=== PATIENT | female | born 1980 | race Caucasian/White ===

== ENCOUNTER 2019-12-17 10:38 | Inpatient (IN) | payer BC, MEDICAID ==
[2019-12-17] MEDS ORDERED: ONDANSETRON HCL INJ/PF 4 MG/2 ML SDV IV ONE (11:17)
--- NOTE | 2019-12-17 11:20 | ER Document Report ---
ED Medical Screen (RME) - General Stated Complaint: URINARY PROBLEMS Time Seen by Provider: 12/17/19 11:10 Primary Care Provider: BENJAMÍN MIRANDA MD [Primary Care Provider] - Follow up as needed TRAVEL OUTSIDE OF THE [place] IN LAST 30 DAYS: No - HPI Notes: 12/17/19 11:18 39-year-old female presents to the emergency room for complaints of right lower quadrant stabbing pain that started yesterday along with malaise, fever chills, vomiting that started yesterday and is become progressive. Patient was seen in the urgent care setting yesterday and was treated with Macrobid for right lower quadrant and suprapubic abdominal pain and was diagnosed with a UTI, she is only taken 2 doses. After taking the Macrobid she started with her vomiting. Patient symptoms have become progressively worse. Patient still has her appendix and her gallbladder. Menstrual cycle was December 06, is not on any control. I have greeted and performed a rapid initial assessment of this patient. A comprehensive ED assessment and evaluation of the patient, analysis of test results and completion of the medical decision making process will be conducted by additional ED providers. PHYSICAL EXAMINATION: GENERAL: Well-appearing, well-nourished and in no acute distress. HEAD: Atraumatic, normocephalic. CV: Tachycardic LUNGS: No respiratory distress abd: Right lower quadrant abdominal tenderness on palpation. Right CVA tenderness on palpation Musculoskeletal: Normal range of motion NEUROLOGICAL: Normal speech, normal gait. SKIN: Warm, Dry, normal turgor, no rashes or lesions noted. - Related Data Allergies/Adverse Reactions: No Known Allergies Allergy (Verified 06/19/16 01:43 EDT) Physical Exam - Vital signs Vitals: Temp Pulse Resp BP Pulse Ox 99.5 F 112 H 16 119/64 99 12/17/19 10:44 12/17/19 10:44 12/17/19 10:44 12/17/19 10:44 12/17/19 10:44 Course - Vital Signs Vital signs: Temp Pulse Resp BP Pulse Ox 99.5 F 112 H 16 119/64 99 12/17/19 11:09 12/17/19 10:44 12/17/19 10:44 12/17/19 10:44 12/17/19 10:44 Doctor's Discharge - Discharge Referrals: BENJAMÍN MIRANDA MD [Primary Care Provider] - Follow up as needed
[2019-12-17] MEDS ORDERED: NORMAL SALINE 1000 ML 1,000 ML IV ONE ×3 (11:21→16:03)
[2019-12-17] MEDS ORDERED: MORPHINE SULFATE 10 MG/ML INJ IV ONE (12:03)
--- NOTE | 2019-12-17 12:27 | ER Document Report ---
ED General - General Chief Complaint: Abdominal Pain Stated Complaint: URINARY PROBLEMS Time Seen by Provider: 12/17/19 11:10 Primary Care Provider: BENJAMÍN MIRANDA MD [Primary Care Provider] - Follow up as needed Mode of Arrival: Ambulatory Information source: Patient TRAVEL OUTSIDE OF THE [place] IN LAST 30 DAYS: No - HPI Notes: Patient was referred from primary care clinic. Patient states she went to primary care clinic yesterday with some lower abdominal pain and pain with urination. She states at that time she was diagnosed with urinary tract infection. She states that she tried 1 dose of the antibiotic she was presc ribed which is Macrobid. After this she began to have fevers headaches chills. She also began to have increasing right lower quadrant abdominal pain. This pain is constant. It is moderate. It radiates to her back. It is worse with movement and better with rest. She has had no vaginal symptoms. She still does have some dysuria. She also has been having headaches. No known coronavirus exposures. - Related Data Allergies/Adverse Reactions: No Known Allergies Allergy (Verified 06/19/16 01:43 EDT) Past Medical History - General Information source: Patient - Social History Smoking Status: Never Smoker Frequency of alcohol use: None Drug Abuse: None Family History: Reviewed & Not Pertinent Patient has homicidal ideation: No Review of Systems - Review of Systems Constitutional: Chills, Fever Cardiovascular: denies: Chest pain, Palpitations Respiratory: denies: Cough, Short of breath -: Yes All other systems reviewed and negative Physical Exam - Vital signs Vitals: Temp Pulse Resp BP Pulse Ox 99.5 F 112 H 16 119/64 99 12/17/19 10:44 12/17/19 10:44 12/17/19 10:44 12/17/19 10:44 12/17/19 10:44 Interpretation: Tachycardic - General General appearance: Appears well, Alert - HEENT Head: Normocephalic, Atraumatic Eyes: Normal Pupils: PERRL - Respiratory Respiratory status: No respiratory distress Chest status: Nontender Breath sounds: Normal Chest palpation: Normal - Cardiovascular Rhythm: Regular Heart sounds: Normal auscultation Murmur: No - Abdominal Inspection: Normal Distension: No distension Bowel sounds: Normal Tenderness: Tender - Patient has right lower quadrant tenderness to palpation with some rebound. Organomegaly: No organomegaly - Back Back: Normal, Nontender - Extremities General upper extremity: Normal inspection, Nontender, Normal color, Normal ROM, Normal temperature General lower extremity: Normal inspection, Nontender, Normal color, Normal ROM, Normal temperature, Normal weight bearing. No: Marie's sign - Neurological Neuro grossly intact: Yes Cognition: Normal Orientation: AAOx4 [place] Coma Scale Eye Opening: Spontaneous [place] Coma Scale Verbal: Oriented [place] Coma Scale Motor: Obeys Commands [place] Coma Scale Total: 15 Speech: Normal Motor strength normal: LUE, RUE, LLE, RLE Sensory: Normal - Psychological Associated symptoms: Normal affect, Normal mood - Skin Skin Temperature: Warm Skin Moisture: Dry Skin Color: Normal Course - Re-evaluation Re-evalutation: 12/17/19 14:59 Patient presents with right-sided abdominal pain and a history of being diagnosed with urinary tract infection yesterday. She states that she is still having fevers and pain and is been unable to tolerate p.o.'s including the antibiotics. CT shows no evidence of appendicitis but she does have evidence of pyelonephritis. Her fever is still 104. Her white count is 16. She does have sepsis but not severe sepsis. Her lactate is normal. She will be admitted and treated with IV antibiotics and fluids. - Vital Signs Vital signs: Temp Pulse Resp BP Pulse Ox 99.5 F 112 H 16 119/64 99 12/17/19 11:09 12/17/19 10:44 12/17/19 10:44 12/17/19 10:44 12/17/19 10:44 - Laboratory Result Diagrams: 12/17/19 12:15 12/17/19 12:15 Laboratory results interpreted by me: 12/17/19 12/17/19 12/17/19 12:15 12:15 12:30 WBC 16.6 H Seg Neuts % (Manual) 93 H Lymphocytes % (Manual) 3 L Abs Neuts (Manual) 15.4 H Sodium 134.2 L Chloride 96 L BUN 6 L Glucose 128 H Total Bilirubin 1.7 H Direct Bilirubin 0.6 H Urine Protein 30 H Urine Ketones 20 H Urine Blood LARGE H Urine Urobilinogen 4.0 H Ur Leukocyte Esterase MODERATE H - Diagnostic Test Radiology reviewed: Image reviewed, Reports reviewed Discharge - Discharge Clinical Impression: Pyelonephritis Sepsis Qualifiers: Sepsis type: sepsis due to unspecified organism Sepsis acute organ dysfunction status: without acute organ dysfunction Qualified Code(s): A41.9 - Sepsis, unspecified organism Condition: Serious Disposition: ADMITTED INPATIENT Admitting Provider: Lucas (Hospitalist) - dank to admit Unit Admitted: Medical Floor Referrals: BENJAMÍN MIRANDA MD [Primary Care Provider] - Follow up as needed
[2019-12-17 12:47] LABS: HEMATOCRIT 39.2 % (36.0-47.0); MEAN CORPUSCULAR HGB CONC 35.7 g/dL (32.0-36.0); MEAN CORPUSCULAR VOLUME 90 fl (80-97); PLATELET COUNT 241 10^3/uL (150-450); RED BLOOD COUNT 4.37 10^6/uL (3.72-5.28); RED CELL DISTRIBUTION WIDTH 12.9 % (11.5-14.0); WHITE BLOOD COUNT 16.6 10^3/uL (4.0-10.5)
[2019-12-17 12:51] LABS: APPEARANCE,URINE CLEAR; BILIRUBIN,URINE NEGATIVE (NEGATIVE); COLOR,URINE AMBER; GLUCOSE, URINE NEGATIVE (NEGATIVE); KETONES,URINE 20 mg/dL (NEGATIVE); LEUKOCYTE ESTERASE,URINE MODERATE (NEGATIVE); NITRITE,URINE NEGATIVE (NEGATIVE); PROTEIN,URINE 30 mg/dL (NEGATIVE); URINE SPECIFIC GRAVITY 1.008
--- NOTE | 2019-12-17 12:58 | EKG REPORT ---
SEVERITY:- OTHERWISE NORMAL ECG - SINUS TACHYCARDIA : Confirmed by: Jeff Rosa MD 17-Dec-2019 12:57:56
[2019-12-17 13:01] LABS: ALBUMIN 4.6 g/dL (3.5-5.0); ALKALINE PHOSPHATASE 106 U/L (38-126); ANION GAP 12 (5-19); ASPARTATE AMINO TRANSFERASE 20 U/L (14-36); BILIRUBIN,DIRECT 0.6 mg/dL (0.0-0.4); BILIRUBIN,TOTAL 1.7 mg/dL (0.2-1.3); BLOOD UREA NITROGEN 6 mg/dL (7-20); CALCIUM 9.4 mg/dL (8.4-10.2); CARBON DIOXIDE 26 mmol/L (22-30); CHLORIDE 96 mmol/L (98-107); GLUCOSE 128 mg/dL (75-110); POTASSIUM 3.7 mmol/L (3.6-5.0); TOTAL PROTEIN 8.1 g/dL (6.3-8.2)
[2019-12-17 13:17] LABS: ABSOLUTE LYMPHOCYTES# (MANUAL) 0.5 10^3/uL (0.5-4.7); ABSOLUTE MONOCYTES # (MANUAL) 0.7 10^3/uL (0.1-1.4); BASOPHILS % (MANUAL) 0 % (0-2); EOSINOPHILS % (MANUAL) 0 % (0-6); LYMPHOCYTES % (MANUAL) 3 % (13-45); MONOCYTES % (MANUAL) 4 % (3-13); SEGMENTED NEUTROPHILS % (MAN) 93 % (42-78); TOTAL CELLS COUNTED 100
[2019-12-17 13:18] LABS: PLATELET COMMENT ADEQUATE; TOXIC GRANULATION 1+; TOXIC VACUOLATION PRESENT
--- NOTE | 2019-12-17 14:49 | RADIOLOGY REPORT (SQ) ---
EXAM DESCRIPTION: CT ABD/PELVIS WITH IV ONLY IMAGES COMPLETED DATE/TIME: 12/17/2019 2:04 pm REASON FOR STUDY: RLQ abd pain, fever, vomiting COMPARISON: None. TECHNIQUE: CT scan of the abdomen and pelvis performed using helical scanning technique with dynamic intravenous contrast injection. No oral contrast. Images reviewed with lung, soft tissue, and bone windows. Reconstructed coronal and sagittal MPR images reviewed. Delayed images for evaluation of the urinary system also acquired. All images stored on PACS. All CT scanners at this facility use dose modulation, iterative reconstruction, and/or weight based d osing when appropriate to reduce radiation dose to as low as reasonably achievable (ALARA). [facility]: Dose Right [facility]: CareDose [facility]: Dose Right [facility]: Teradose 4D [facility]: Strands CONTRAST TYPE AND DOSE: Contrast/concentration: Isovue 350.00 mg/ml; Total Contrast Delivered: 79.9 ml; Total Saline Delivered: 55.0 ml RENAL FUNCTION: Creatinine 0.57 milligrams/deciliter. RADIATION DOSE: CT Rad equipment meets quality standard of care and radiation dose reduction techniq ues were employed. CTDIvol: 5.4 - 7.2 mGy. DLP: 722 mGy-cm. LIMITATIONS: None. FINDINGS: LOWER CHEST: No acute findings. LIVER: The morphology of the liver is noncirrhotic. The portal veins are patent. There is no hepati c mass. SPLEEN: No splenomegaly or splenic mass. PANCREAS: No acute abnormality of the pancreas. GALLBLADDER: No abnormality that is apparent on CT. ADRENAL GLANDS: No mass or asymmetry. RIGHT KIDNEY AND URETER: Striated heterogeneous striated enhancement pattern of the kidney with bands of low attenuation that extend to the cortex. The renal pelvis is patulous and there is asymmetric enhancement of the urothelium. Evaluation for nephrolithiasis or ureterolithiasis is limited as excr eted intravenous contrast is present within the renal calices and pelvis. LEFT KIDNEY AND URETER: No solid mass, hydronephrosis or hydroureter. AORTA AND VESSELS: No aneurysm or dissection of the abdominal aorta. RETROPERITONEUM: No retroperitoneal adenopathy, hemorrhage or mass. BOWEL AND PERITONEAL CAVITY: No bowel obstruction, bowel wall thickening or pericolonic/ perienteric inflammation. No mesenteric adenopathy, free intraperitoneal fluid or mesenteric/ omental inflammati on. APPENDIX: Unable to identify the appendix. PELVIS: No abnormality of the uterus or adnexa that is apparent on CT. The wall of the urinary bladd er is thickened. ABDOMINAL WALL: No mass or adenopathy. BONES: No fracture or osseous lesion. OTHER: No other finding. IMPRESSION: Striated heterogeneous striated enhancement pattern of the right kidney with bands of lo w attenuation that extend to the cortex and asymmetric stranding of the perinephric fat. Clinical co rrelation to exclude a pyelonephritis is recommended. TECHNICAL DOCUMENTATION: JOB ID: [id number] Quality ID # [id number]: Final reports with documentation of one or more dose reduction techniques (e.g., Au tomated exposure control, adjustment of the mA and/or kV according to patient size, use of iterative reconstruction technique) 2010 [employer]- All Rights Reserved Reading location - IP/workstation name: [email or web address]
[2019-12-17] MEDS ORDERED: CEFTRIAXONE 1 GM/D5W RTU 1 GM/50 ML RTUPB IV ONE (14:54)
[2019-12-17] MEDS ORDERED: ACETAMINOPHEN 325 MG TABLET PO ONE (14:54)
--- NOTE | 2019-12-17 16:14 | PDOC H&P ---
History of Present Illness Admission Date/PCP: 12/17/19 15:09 BENJAMÍN MIRANDA MD Patient complains of: Dysuria, fever History of Present Illness: JACKSON JEROME is a 39 year old female with prior history of distant UTI during , presents to the hospital for evaluation of dysuria, fever, and nausea and vomiting. Her symptoms initially started with hematuria 5 days ago accompanied by right flank pain described as a burning sensation with minimal radiation aggravated by urination without any clear alleviating factors and no prior episode. Hematuria was gross characterized as blood-tinged urine. Patient took Azo [id number] without any improvement. However the hematuria and burning sensation began to improve by Monday. Yesterday patient went to see her primary care provider who prescribed nitrofurantoin. Also yesterday, she began to experience fever, chills, nausea and a few episodes of vomiting. Still dysuria became stronger. Mild polyuria. Past Medical History Cardiac Medical History: Reports: None Renal/ Medical History: Reports: Other - UTI Past Surgical History Past Surgical History: Reports: Tonsillectomy Social History Information Source: Patient Smoking Status: Never Smoker Frequency of Alcohol Use: None Hx Recreational Drug Use: No Hx Prescription Drug Abuse: No - Advance Directive Resuscitation Status: Full Code Family History Family History: Malignancy - Lung cancer in father, Other - Crohn's disease in mother Parental Family History Reviewed: Yes Children Family History Reviewed: NA Sibling(s) Family History Reviewed.: Yes Medication/Allergy Home Medications: Nitrofurantoin Monohyd/M-Cryst [Macrobid 100 mg Capsule] 100 mg PO Q12 12/17/19 Allergies/Adverse Reactions: No Known Allergies Allergy (Verified 06/19/16 01:43 EDT) Review of Systems Constitutional: PRESENT: chills, fever(s) Eyes: ABSENT: visual disturbances Nose, Mouth, and Throat: PRESENT: headache(s) Cardiovascular: ABSENT: chest pain Respiratory: ABSENT: cough, dyspnea Gastrointestinal: PRESENT: as per HPI, abdominal pain, nausea, vomiting. ABSENT: constipation, diarrhea Genitourinary: PRESENT: dysuria, hematuria. ABSENT: nocturia Musculoskeletal: ABSENT: back pain Integumentary: PRESENT: diaphoresis Neurological: PRESENT: dizziness - Lightheadedness when standing. ABSENT: confusion, convulsions Psychiatric: ABSENT: anxiety Endocrine: ABSENT: cold intolerance Allergic/Immunologic: PRESENT: other - Denies rhinorrhea or nasal congestion Physical Exam Vital Signs: Temp Pulse Resp BP Pulse Ox 102.8 F H 112 H 15 108/83 97 12/17/19 15:58 12/17/19 10:44 12/17/19 14:00 12/17/19 13:01 12/17/19 14:00 Intake & Output 12/16/19 12/17/19 12/18/19 06:59 06:59 06:59 Intake Total 2049 Balance 2049 Weight 70.2 kg General appearance: PRESENT: no acute distress, cooperative Head exam: PRESENT: normocephalic Mouth exam: PRESENT: neck supple Respiratory exam: PRESENT: clear to auscultation bj, unlabored. ABSENT: tachypnea, wheezes Cardiovascular exam: PRESENT: +S1, +S2, tachycardia. ABSENT: irregular rhythm GI/Abdominal exam: PRESENT: normal bowel sounds, soft, tenderness - Right lower quadrant tenderness and right flank. ABSENT: distended, firm, guarding, rebound, rigid Extremities exam: ABSENT: pedal edema, +1 edema, +2 edema Neurological exam: PRESENT: alert, awake, oriented to person, oriented to place, oriented to time Psychiatric exam: ABSENT: agitated, anxious Focused psych exam: ABSENT: pressured speech Results Laboratory Results: 12/17/19 12:15 12/17/19 12:15 12/17/19 12/17/19 12/17/19 12:15 12:15 12:15 WBC 16.6 H RBC 4.37 Hgb 14.0 Hct 39.2 MCV 90 MCH 32.0 MCHC 35.7 RDW 12.9 Plt Count 241 Seg Neutrophils % Not Reportable Sodium 134.2 L Potassium 3.7 Chloride 96 L Carbon Dioxide 26 Anion Gap 12 BUN 6 L Creatinine 0.57 Est GFR ( Amer) > 60 Glucose 128 H Lactic Acid 1.1 Calcium 9.4 Total Bilirubin 1.7 H AST 20 Alkaline Phosphatase 106 Total Protein 8.1 Albumin 4.6 Urine Color Urine Appearance Urine pH Ur Specific [place] Urine Protein Urine Glucose (UA) Urine Ketones Urine Blood Urine Nitrite Ur Leukocyte Esterase Urine WBC (Auto) Urine RBC (Auto) 12/17/19 12:30 WBC RBC Hgb Hct MCV MCH MCHC RDW Plt Count Seg Neutrophils % Sodium Potassium Chloride Carbon Dioxide Anion Gap BUN Creatinine Est GFR ( Amer) Glucose Lactic Acid Calcium Total Bilirubin AST Alkaline Phosphatase Total Protein Albumin Urine Color DWIGHT Urine Appearance CLEAR Urine pH 6.0 Ur Specific [place] 1.008 Urine Protein 30 H Urine Glucose (UA) NEGATIVE Urine Ketones 20 H Urine Blood LARGE H Urine Nitrite NEGATIVE Ur Leukocyte Esterase MODERATE H Urine WBC (Auto) 18 Urine RBC (Auto) 23 Impressions: Abdomen/Pelvis CT 12/17/19 11:17 IMPRESSION: Striated heterogeneous striated enhancement pattern of the right kidney with bands of low attenuation that extend to the cortex and asymmetric stranding of the perinephric fat. Clinical correlation to exclude a pyelonephritis is recommended. Assessment and Plan - Diagnosis (1) Acute pyelonephritis Is this a current diagnosis for this admission?: Yes Plan: Visualized on CT image in combination with positive urinalysis and systemic symptoms. Likely etiology of patient's fever. Check urine culture. Blood cultures are pending. Start on ciprofloxacin Tylenol and Toradol as needed for high fevers. We will also give ice packs if needed. (2) Sepsis Qualifiers: Sepsis type: sepsis due to unspecified organism Sepsis acute organ dysfunction status: without acute organ dysfunction Qualified Code(s): A41.9 - Sepsis, unspecified organism Is this a current diagnosis for this admission?: Yes Plan: Evidenced by UTI with tachycardia, leukocytosis, high fevers, hyperbilirubinemia. Lactic within normal limits. S/p 2L NS in ER. Will give another normal saline bolus and run on continuous fluids. - Time Time Spent with patient: 25-34 minutes
[2019-12-17] MEDS: NORMAL SALINE 1000 ML 1,000 ML IV PRN (16:17)
[2019-12-17] MEDS: CIPROFLOXACIN 400 MG/D5W RTU 400 MG/200 ML RTUPB IV SCH (17:21)
[2019-12-17] MEDS: KETOROLAC TROMETHAMINE INJ/PF 30 MG/1 ML SDV IV PRN (19:38)
[2019-12-17] MEDS: ONDANSETRON 4 MG TAB.RAPDIS PO PRN (19:39)
[2019-12-18] MEDS: ACETAMINOPHEN 325 MG TABLET PO PRN ×3 (01:54→19:48)
[2019-12-18] MEDS: CIPROFLOXACIN 400 MG/D5W RTU 400 MG/200 ML RTUPB IV SCH ×2 (05:48→17:04)
[2019-12-18 06:03] LABS: ABSOLUTE LYMPHOCYTES (AUTO) 0.8 10^3/uL (0.5-4.7); ABSOLUTE MONOCYTES (AUTO) 1.4 10^3/uL (0.1-1.4); ABSOLUTE NEUT (AUTO) 11.1 10^3/uL (1.7-8.2); BASOPHILS % (AUTO) 0.2 % (0-2); EOSINOPHILS % (AUTO) 0.1 % (0-6); HEMATOCRIT 28.7 % (36.0-47.0); MEAN CORPUSCULAR HEMOGLOBIN 31.6 pg (27.0-33.4); MEAN CORPUSCULAR HGB CONC 35.5 g/dL (32.0-36.0); MEAN CORPUSCULAR VOLUME 89 fl (80-97); MONOCYTES % (AUTO) 10.2 % (3-13); PLATELET COUNT 157 10^3/uL (150-450); RED BLOOD COUNT 3.23 10^6/uL (3.72-5.28); SEGMENTED NEUTROPHILS % (AUTO) 83.5 % (42-78); TOTAL CELLS COUNTED % (AUTO) 100 %; WHITE BLOOD COUNT 13.3 10^3/uL (4.0-10.5)
[2019-12-18 06:07] LABS: HEMOGLOBIN 10.2 g/dL (12.0-15.5)
[2019-12-18 06:16] LABS: ALBUMIN 2.7 g/dL (3.5-5.0); ALKALINE PHOSPHATASE 65 U/L (38-126); ANION GAP 8 (5-19); ASPARTATE AMINO TRANSFERASE 15 U/L (14-36); BILIRUBIN,DIRECT 0.3 mg/dL (0.0-0.4); BILIRUBIN,TOTAL 0.8 mg/dL (0.2-1.3); BLOOD UREA NITROGEN 7 mg/dL (7-20); CALCIUM 7.4 mg/dL (8.4-10.2); CARBON DIOXIDE 22 mmol/L (22-30); CHLORIDE 104 mmol/L (98-107); GLUCOSE 103 mg/dL (75-110); POTASSIUM 3.5 mmol/L (3.6-5.0); TOTAL PROTEIN 5.4 g/dL (6.3-8.2)
[2019-12-18] MEDS ORDERED: POTASSIUM CHLORIDE 10 MEQ TABLET.ER PO ONE (07:26)
--- NOTE | 2019-12-18 09:48 | PDOC PROGRESS REPORT ---
Subjective Progress Note for:: 12/18/19 Subjective:: Patient still having some burning urine this morning. Admits to diaphoresis but not febrile. Nausea has resolved but still has poor appetite. Reason For Visit: PYELONEPHRITIS Physical Exam Vital Signs: Temp Pulse Resp BP Pulse Ox 99.0 F 87 16 107/54 L 99 12/17/19 23:24 12/18/19 07:00 12/17/19 23:24 12/17/19 23:24 12/17/19 23:24 Intake & Output 12/17/19 12/18/19 12/19/19 06:59 06:59 06:59 Intake Total 4810 Balance 4810 Weight 70.1 kg General appearance: PRESENT: no acute distress, cooperative Head exam: PRESENT: normocephalic Mouth exam: PRESENT: neck supple Neck exam: ABSENT: JVD Respiratory exam: PRESENT: symmetrical, unlabored. ABSENT: accessory muscle use, retraction, tachypnea GI/Abdominal exam: PRESENT: soft, tenderness - Right lower quadrant and right flank. ABSENT: distended, firm, guarding, rebound, rigid Neurological exam: PRESENT: alert, awake, oriented to person, oriented to place, oriented to time Psychiatric exam: ABSENT: agitated, anxious Focused psych exam: ABSENT: pressured speech Skin exam: ABSENT: jaundice Results Laboratory Results: 12/18/19 05:05 12/18/19 05:05 12/17/19 12/17/19 12/17/19 12:15 12:15 12:15 WBC 16.6 H RBC 4.37 Hgb 14.0 Hct 39.2 MCV 90 MCH 32.0 MCHC 35.7 RDW 12.9 Plt Count 241 Seg Neutrophils % Not Reportable Sodium 134.2 L Potassium 3.7 Chloride 96 L Carbon Dioxide 26 Anion Gap 12 BUN 6 L Creatinine 0.57 Est GFR ( Amer) > 60 Glucose 128 H Lactic Acid 1.1 Calcium 9.4 Magnesium Total Bilirubin 1.7 H AST 20 Alkaline Phosphatase 106 Total Protein 8.1 Albumin 4.6 Urine Color Urine Appearance Urine pH Ur Specific [place] Urine Protein Urine Glucose (UA) Urine Ketones Urine Blood Urine Nitrite Ur Leukocyte Esterase Urine WBC (Auto) Urine RBC (Auto) 12/17/19 12/18/19 12/18/19 12:30 05:05 05:05 WBC 13.3 H RBC 3.23 L Hgb 10.2 L D Hct 28.7 L MCV 89 MCH 31.6 MCHC 35.5 RDW 13.0 Plt Count 157 Seg Neutrophils % 83.5 H Sodium 134.3 L Potassium 3.5 L Chloride 104 Carbon Dioxide 22 Anion Gap 8 BUN 7 Creatinine 0.50 L Est GFR ( Amer) > 60 Glucose 103 Lactic Acid Calcium 7.4 L Magnesium 1.7 Total Bilirubin 0.8 AST 15 Alkaline Phosphatase 65 Total Protein 5.4 L Albumin 2.7 L Urine Color DWIGHT Urine Appearance CLEAR Urine pH 6.0 Ur Specific [place] 1.008 Urine Protein 30 H Urine Glucose (UA) NEGATIVE Urine Ketones 20 H Urine Blood LARGE H Urine Nitrite NEGATIVE Ur Leukocyte Esterase MODERATE H Urine WBC (Auto) 18 Urine RBC (Auto) 23 Impressions: Abdomen/Pelvis CT 12/17/19 11:17 IMPRESSION: Striated heterogeneous striated enhancement pattern of the right kidney with bands of low attenuation that extend to the cortex and asymmetric stranding of the perinephric fat. Clinical correlation to exclude a py elonephritis is recommended. Assessment and Plan - Diagnosis (1) Acute pyelonephritis Is this a current diagnosis for this admission?: Yes Plan: Visualized on CT image in combination with positive urinalysis and systemic symptoms. Likely etiology of patient's fever. Follow-up urine culture and blood cultures to help channel therapy Continue ciprofloxacin Tylenol and Toradol as needed for pain and fevers. Antiemetics as needed (2) Sepsis Qualifiers: Sepsis type: sepsis due to unspecified organism Sepsis acute organ dysfun ction status: without acute organ dysfunction Qualified Code(s): A41.9 - Sepsis, unspecified organism Is this a current diagnosis for this admission?: Yes Plan: Sepsis seems to have improved at this time. - Time Time Spent with patient: Less than 15 minutes
[2019-12-18] MEDS: PROMETHAZINE HCL 25 MG TABLET PO PRN ×2 (13:31→23:59)
[2019-12-18] MEDS: KETOROLAC TROMETHAMINE INJ/PF 30 MG/1 ML SDV IV PRN ×2 (13:31→23:58)
[2019-12-18] MEDS: NORMAL SALINE 1000 ML 1,000 ML IV PRN ×2 (13:36→23:56)
[2019-12-18] MEDS: ONDANSETRON 4 MG TAB.RAPDIS PO PRN (17:04)
[2019-12-19] MEDS: CIPROFLOXACIN 400 MG/D5W RTU 400 MG/200 ML RTUPB IV SCH (05:49)
[2019-12-19 06:23] LABS: ABSOLUTE LYMPHOCYTES (AUTO) 1.4 10^3/uL (0.5-4.7); BASOPHILS % (AUTO) 0.3 % (0-2); EOSINOPHILS % (AUTO) 0.4 % (0-6); HEMOGLOBIN 9.9 g/dL (12.0-15.5); LYMPHOCYTES % (AUTO) 14.6 % (13-45); MEAN CORPUSCULAR HEMOGLOBIN 31.6 pg (27.0-33.4); MEAN CORPUSCULAR HGB CONC 35.3 g/dL (32.0-36.0); MEAN CORPUSCULAR VOLUME 90 fl (80-97); PLATELET COUNT 179 10^3/uL (150-450); RED BLOOD COUNT 3.12 10^6/uL (3.72-5.28); RED CELL DISTRIBUTION WIDTH 13.3 % (11.5-14.0); SEGMENTED NEUTROPHILS % (AUTO) 73.7 % (42-78); TOTAL CELLS COUNTED % (AUTO) 100 %; WHITE BLOOD COUNT 9.5 10^3/uL (4.0-10.5)
[2019-12-19] MEDS: ACETAMINOPHEN 325 MG TABLET PO PRN (08:17)
--- NOTE | 2019-12-19 10:06 | PDOC DISCHARGE SUMMARY ---
Impression - Admit/DC Date/PCP Admission Date/Primary Care Provider: 12/17/19 15:09 BENJAMÍN MIRANDA MD Discharge Date: 12/19/19 - Discharge Diagnosis (1) Acute pyelonephritis Is this a current diagnosis for this admission?: Yes (2) Sepsis Is this a current diagnosis for this admission?: Yes - Additional Information Resuscitation Status: Full Code Discharge Diet: Regular Referrals: BENJAMÍN MIRANDA MD [Primary Care Provider] - Follow up as needed Prescriptions: Ciprofloxacin HCl [Cipro 500 mg Tablet] 500 mg PO Q12 #16 tablet Ondansetron [Zofran Odt 4 mg Tablet] 1 - 2 tab PO Q4HP PRN #10 tab.rapdis PRN Reason: Home Medications: Ciprofloxacin HCl [Cipro 500 mg Tablet] 500 mg PO Q12 #16 tablet 12/19/19 Ondansetron [Zofran Odt 4 mg Tablet] 1 - 2 tab PO Q4HP PRN #10 tab.rapdis 12/19/19 History of Present Illiness History of Present Illness: JACKSON JEROME is a 39 year old female with prior history of distant UTI during , presents to the hospital for evaluation of dysuria, fever, and nausea and vomiting. Her symptoms initially started with hematuria 5 days ago accompanied by right flank pain described as a burning sensation with minimal radiation aggravated by urination without any clear alleviating factors and no prior episode. Hematuria was gross characterized as blood-tinged urine. Patient took Azo [id number] without any improvement. However the hematuria and burning sensation began to improve by Monday. Yesterday patient went to see her primary care provider who prescribed nitrofurantoin. Also yesterday, she began to experience fever, chills, nausea and a few episodes of vomiting. Still dysuria became stronger. Mild polyuria. Hospital Course Hospital Course: Patient was admitted for treatment of sepsis secondary to pyelonephritis. Sepsis evidenced by elevated bilirubin, significant tachycardia, high fever, leukocytosis in setting of pyelonephritis with positive urinalysis and CT showing findings consistent with right-sided pyelonephritis. Was suspected that patient's initial hematuria which seemed to have resolved on presentation may have depicted a period where she might have had kidney stone on the right side which which will had subsequently passed and was not seen on the CT at time of presentation. I suspect that this may have triggered patient's pyelonephritis. Patient was treated with IV fluid resuscitation and started on ciprofloxacin IV. Urine culture grew E. coli. Blood cultures negative so far. Patient's fever broke and patient has been afebrile for almost 2 days now. Symptoms have improved significantly and she is stable. Leukocytosis has also resolved. Vital signs are adequate. Patient is being discharged home on p.o. ciprofloxacin for 8 more days to complete 10-day course of therapy and Zofran as needed. Physical Exam Vital Signs: Temp Pulse Resp BP Pulse Ox 98.4 F 78 16 115/64 99 12/19/19 00:00 12/19/19 02:00 12/19/19 00:00 12/19/19 00:00 12/19/19 00:00 Intake & Output 12/18/19 12/19/19 12/20/19 06:59 06:59 06:59 Intake Total 4810 2040 Output Total 1400 Balance 4810 640 Weight 70.1 kg 70.2 kg General appearance: PRESENT: no acute distress, cooperative GI/Abdominal exam: PRESENT: soft, tenderness - mild right flank. ABSENT: firm, guarding, rebound, rigid Neurological exam: PRESENT: alert, awake Results Laboratory Results: WBC 9.5 10^3/uL (4.0-10.5) 12/19/19 05:26 RBC 3.12 10^6/uL (3.72-5.28) L 12/19/19 05:26 Hgb 9.9 g/dL (12.0-15.5) L 12/19/19 05:26 Hct 28.0 % (36.0-47.0) L 12/19/19 05:26 MCV 90 fl (80-97) 12/19/19 05:26 MCH 31.6 pg (27.0-33.4) 12/19/19 05:26 MCHC 35.3 g/dL (32.0-36.0) 12/19/19 05:26 RDW 13.3 % (11.5-14.0) 12/19/19 05:26 Plt Count 179 10^3/uL (150-450) 12/19/19 05:26 Lymph % (Auto) 14.6 % (13-45) 12/19/19 05:26 [place] % (Auto) 11.0 % (3-13) 12/19/19 05:26 Eos % (Auto) 0.4 % (0-6) 12/19/19 05:26 Baso % (Auto) 0.3 % (0-2) 12/19/19 05:26 Absolute Neuts (auto) 7.0 10^3/uL (1.7-8.2) 12/19/19 05:26 Absolute Lymphs (auto) 1.4 10^3/uL (0.5-4.7) 12/19/19 05:26 Absolute Monos (auto) 1.0 10^3/uL (0.1-1.4) 12/19/19 05:26 Absolute Eos (auto) 0.0 10^3/uL (0.0-0.6) 12/19/19 05:26 Absolute Basos (auto) 0.0 10^3/uL (0.0-0.2) 12/19/19 05:26 Total Counted 100 12/17/19 12:15 Seg Neutrophils % 73.7 % (42-78) 12/19/19 05:26 Seg Neuts % (Manual) 93 % (42-78) H 12/17/19 12:15 Lymphocytes % (Manual) 3 % (13-45) L 12/17/19 12:15 Monocytes % (Manual) 4 % (3-13) 12/17/19 12:15 Eosinophils % (Manual) 0 % (0-6) 12/17/19 12:15 Basophils % (Manual) 0 % (0-2) 12/17/19 12:15 Abs Neuts (Manual) 15.4 10^3/uL (1.7-8.2) H 12/17/19 12:15 Abs Lymphs (Manual) 0.5 10^3/uL (0.5-4.7) 12/17/19 12:15 Abs Monocytes (Manual) 0.7 10^3/uL (0.1-1.4) 12/17/19 12:15 Absolute Eos (Manual) 0.0 10^3/uL (0.0-0.6) 12/17/19 12:15 Abs Basophils (Manual) 0.0 10^3/uL (0.0-0.2) 12/17/19 12:15 Toxic Granulation 1+ 12/17/19 12:15 Toxic Vacuolation PRESENT 12/17/19 12:15 Platelet Comment ADEQUATE 12/17/19 12:15 Sodium 134.3 mmol/L (137-145) L 12/18/19 05:05 Potassium 3.5 mmol/L (3.6-5.0) L 12/18/19 05:05 Chloride 104 mmol/L (98-107) 12/18/19 05:05 Carbon Dioxide 22 mmol/L (22-30) 12/18/19 05:05 Anion Gap 8 (5-19) 12/18/19 05:05 BUN 7 mg/dL (7-20) 12/18/19 05:05 Creatinine 0.50 mg/dL (0.52-1.25) L 12/18/19 05:05 Est GFR ( Amer) > 60 (>60) 12/18/19 05:05 Est GFR (MDRD) Non-Af > 60 (>60) 12/18/19 05:05 Glucose 103 mg/dL (75-110) 12/18/19 05:05 Lactic Acid 1.1 mmol/L (0.7-2.1) 12/17/19 12:15 Calcium 7.4 mg/dL (8.4-10.2) L 12/18/19 05:05 Magnesium 1.7 mg/dL (1.6-2.3) 12/18/19 05:05 Total Bilirubin 0.8 mg/dL (0.2-1.3) 12/18/19 05:05 Direct Bilirubin 0.3 mg/dL (0.0-0.4) 12/18/19 05:05 Neonat Total Bilirubin Not Reportable 12/18/19 05:05 Neonat Direct Bilirubin Not Reportable 12/18/19 05:05 Neonat Indirect Bili Not Reportable 12/18/19 05:05 AST 15 U/L (14-36) 12/18/19 05:05 ALT 11 U/L (<35) 12/18/19 05:05 Alkaline Phosphatase 65 U/L (38-126) 12/18/19 05:05 Total Protein 5.4 g/dL (6.3-8.2) L 12/18/19 05:05 Albumin 2.7 g/dL (3.5-5.0) L 12/18/19 05:05 Urine Color DWIGHT 12/17/19 12:30 Urine Appearance CLEAR 12/17/19 12:30 Urine pH 6.0 (5.0-9.0) 12/17/19 12:30 Ur Specific [place] 1.008 12/17/19 12:30 Urine Protein 30 mg/dL (NEGATIVE) H 12/17/19 12:30 Urine Glucose (UA) NEGATIVE mg/dL (NEGATIVE) 12/17/19 12:30 Urine Ketones 20 mg/dL (NEGATIVE) H 12/17/19 12:30 Urine Blood LARGE (NEGATIVE) H 12/17/19 12:30 Urine Nitrite NEGATIVE (NEGATIVE) 12/17/19 12:30 Urine Bilirubin NEGATIVE (NEGATIVE) 12/17/19 12:30 Urine Urobilinogen 4.0 mg/dL (<2.0) H 12/17/19 12:30 Ur Leukocyte Esterase MODERATE (NEGATIVE) H 12/17/19 12:30 Urine WBC (Auto) 18 /HPF 12/17/19 12:30 Urine RBC (Auto) 23 /HPF 12/17/19 12:30 Urine Bacteria (Auto) TRACE /HPF 12/17/19 12:30 Squamous Epi Cells Auto 2 /HPF 12/17/19 12:30 Urine Mucus (Auto) RARE /LPF 12/17/19 12:30 Urine Ascorbic Acid NEGATIVE (NEGATIVE) 12/17/19 12:30 Urine HCG, Qual NEGATIVE (NEGATIVE) 12/17/19 12:30 Impressions: Abdomen/Pelvis CT 12/17/19 11:17 IMPRESSION: Striated heterogeneous striated enhancement pattern of the right kidney with bands of low attenuation that extend to the cortex and asymmetric stranding of the perinephric fat. Clinical correlation to exclude a pyelonephritis is recommended. Plan Time Spent: Less than 30 Minutes Stroke Is this a Stroke Patient?: No Acute Heart Failure - Is this a Heart Failure Patient?: No
[2019-12-19 11:17] VITALS: BP 115/64
== END 2019-12-19 13:05 | disposition home or self-care (01) | DRG 872 ==
LOC: ER 10:38 → EH 15:09 → 4N 16:03
PROVIDERS: ADMIT Internal Medicine; ATTEND Internal Medicine
DX: A41.9 Sepsis, unspecified organism (principal); N10 Acute pyelonephritis; R31.9 Hematuria, unspecified; B96.20 Unspecified Escherichia coli [E. coli] as the cause of diseases classified elsewhere
CPT/HCPCS: 36415; 74177; 80053; 81001; 81025; 83605; 83735; 85025; 87040; 87086; 87088; 87186; 93005; 93010; 96361; 96374; 96375; 99285; J0696; J0744; J1885; J2270; J2405; J7030; S0119